=== PATIENT | female | born 1985 | race Two or more races ===

== ENCOUNTER 2024-09-14 05:19 | Day surgery (SDC) | payer OTHER ==
[~2024-09-14] VITALS: Ht 152.4 cm; Wt 54.9 kg
[~2024-09-14 05:19] MED LIST: DEXILANT60 MG PO; DICYCLOMINE HCL20 MG PO; ENZYME DIGEST1 EACH PO; INTESTINEX680 M1 PO; LEVSIN/SL0.125 MG SL; PEPCID40 MG PO; VIENVA-28 TABL1 EACH PO
[2024-09-14] MEDS ORDERED: CEFOXITIN SODIUM 2,000 MG VIAL IV ONE (06:30)
[2024-09-14] MEDS ORDERED: BUPIVACAINE HCL/MPF 0.5% 30ML VIAL ONE (07:29)
[2024-09-14] MEDS ORDERED: LIDOCAINE HCL 1%/EPINEPHRINE 20ML VIAL IJ ONE (07:29)
[2024-09-14] MEDS ORDERED: DEXILANT60 MG PO (08:30)
[2024-09-14] MEDS ORDERED: DICYCLOMINE HCL20 MG PO (08:30)
[2024-09-14] MEDS ORDERED: PERCOCET 5-3251 EACH PO (08:31)
[2024-09-14] MEDS ORDERED: PEPCID AC20 MG PO (08:31)
[2024-09-14] MEDS ORDERED: ZOFRAN8 MG PO (08:32)
[2024-09-14] MEDS ORDERED: MORPHINE SULFATE 4 MG/ML VIAL IV ONE (10:25)
== END 2024-09-14 12:15 | disposition home or self-care (01) ==
LOC: CIR.AMB 05:19
PROVIDERS: ATTEND Surgery
DX: K81.1 Chronic cholecystitis (principal); Z91.040 Latex allergy status; F41.9 Anxiety disorder, unspecified